=== PATIENT | female | born 1945 | race Caucasian/White ===

== ENCOUNTER → 2022-12-02 | Outpatient (CLI) | payer SELFPAY | END | disposition home or self-care (01) | PROVIDERS: Visit Provider Physician Assistant | DX: N39.0 Urinary tract infection, site not specified (principal) | CPT/HCPCS: 87086 ==

== ENCOUNTER → 2024-08-03 | Outpatient (CLI) | payer SELFPAY ==
--- NOTE | 2024-08-03 08:30 | CT_ITS ---
PROCEDURE: ABDOMEN/PELVIS WITHOUT CONT REASON FOR EXAM: Chronic cystitis. TECHNIQUE: CT abdomen and pelvis was performed without IV contrast. Multiplanar reformats were generated. IV CONTRAST: None COMPARISON: None FINDINGS: Note that evaluation of the abdominopelvic viscera, vasculature, and remaining soft tissues is limited in the absence of IV contrast. Lung bases: Mild atelectasis/scarring.. Liver: Granuloma versus capsular calcification along the right hepatic dome, doubtful clinical significance.. Spleen: Unremarkable. Gallbladder: Unremarkable. Pancreas: Unremarkable. Adrenals: Unremarkable. Kidneys: Unremarkable. Bowel: Unremarkable. Reported appendectomy. Lymph nodes: Unremarkable. Vasculature: Atherosclerosis.. Peritoneum: Unremarkable. Bladder: Underdistended and suboptimally evaluated, grossly unremarkable. Reproductive Organs: Uterine likely vascular calcifications. 3.2 x 2.8 x 5.9 cm left adnexal cyst, incompletely characterized. Body Wall: Tiny fat containing umbilical hernia.. Bones: Demineralization. Likely chronic mild compression deformity involving L1. Mild spondylosis. At least moderate/severe spinal canal stenosis suggested at L3-L4 related to disc bulging and ligamentum flavum hypertrophy, not well evaluated by CT. CT/Abdomen/Pelvis without Cont IMPRESSION: 1. No acute noncontrast findings. Limited evaluation of the underdistended cam dder however it appears grossly unremarkable. 2. 5.9 cm left adnexal cyst incompletely characterized by noncontrast CT. Give n that the patient is postmenopausal, recommend pelvic ultrasound in 2-6 months for improved characterization and evaluation of short interval stability. 3. Additional description as above. Reading Location: [facility]
== END | disposition home or self-care (01) ==
PROVIDERS: Referring Provider Urology; Visit Provider Urology
DX: N30.20 Other chronic cystitis without hematuria (principal)
CPT/HCPCS: 74176

== ENCOUNTER → 2024-10-04 | Outpatient (CLI) | payer SELFPAY ==
--- NOTE | 2024-10-04 09:03 | US_ITS ---
PROCEDURE: PELVIC W/ TRANSVAGINAL 10/04/2024 REASON FOR EXAM: UNSPECIFIED OVARIAN CYST, LEFT SIDE TECHNIQUE: Transabdominal and transvaginal pelvic ultrasound. Color and spectral doppler analysis of the ovaries. COMPARISON: CT abdomen and pelvis on 08/03/2024. FINDINGS: Measurements: Uterus: 6.4 x 2.0 x 4.0 cm for volume of 27.2 mL Endometrial Thickness: 0.3 Right Ovary: Not visualized Left Ovary: 6.1 x 4.1 x 5.9 cm for volume of 78.1 mL Uterus: Anteverted. Scattered echogenic foci throughout the myometrium. There is suggestion of a hypoechoic lesion near the posterior aspect of the lower uterine segment measuring 2.5 x 1.4 x 1.6 cm. Endometrium: Normal echotexture. Right ovary: Not visualized. Left ovary: Unilocular anechoic lesion with thin knott and absent vascularity in the left ovary measuring 5.8 x 3.8 cm. Cul-de-sac: No significant free intraperitoneal fluid identified. DOPPLER: Color Doppler: Normal color flow doppler signal in the left ovary. Spectral Doppler: Normal arterial inflow and venous outflow signal in the left ovary. US/Pelvic w/ Transvaginal IMPRESSION: 1. Simple cyst in the left ovary measuring up to 5.8 cm. Recommend repeat ultr asound in 12 months per ACR O-RADS guidelines. 2. Questionable hypoechoic lesion near the posterior uterus measuring 2.5 cm, possibly a leiomyoma. 3. Right ovary was not visualized. Reading Location: [facility]
== END | disposition home or self-care (01) ==
PROVIDERS: PCP Nurse Practitioner Family; Referring Provider Nurse Practitioner Family; Visit Provider Nurse Practitioner Family
DX: N83.202 Unspecified ovarian cyst, left side (principal)
CPT/HCPCS: 76830; 76856